=== PATIENT | female | born 1930 | race Caucasian/White ===

== ENCOUNTER 2016-09-01 08:56 | Inpatient (IN) | payer OTHER ==
[~2016-09-01] VITALS: Ht 157.5 cm; Wt 52.2 kg
[2016-09-01 08:56] VITALS: BP_SYST 161
[2016-09-01] MEDS ORDERED: ONDANSETRON HCL 4 MG/2 ML VIAL IVP ONE (09:00)
[2016-09-01] MEDS ORDERED: DEXAMETHASONE SOD PHOSPHATE 10 MG/ML VIAL IVP ONE (09:00)
[2016-09-01] MEDS ORDERED: NS 500 ML IV ONE (09:15)
[2016-09-01 09:25] LABS: BASOPHILS % (AUTO) 0.3 % (0.0-2.0); EOSINOPHILS # (AUTO) 0.1 K/uL (0.0-0.4); EOSINOPHILS % (AUTO) 2.6 % (0.0-4.0); HEMATOCRIT 44.2 % (36-48); HEMOGLOBIN 14.6 g/dL (12.0-16.0); LYMPHOCYTES # (AUTO) 0.9 K/uL (1.0-5.5); LYMPHOCYTES % (AUTO) 16.4 % (20.5-51.5); MEAN CORPUSCULAR HEMOGLOBIN 31 pg (27-31); MEAN CORPUSCULAR HGB CONC 33 % (32-36); MEAN CORPUSCULAR VOLUME 94 fL (79.0-98.0); MONOCYTES # (AUTO) 0.4 K/uL (0.0-1.0); MONOCYTES % (AUTO) 7.8 % (1.7-9.3); NEUTROPHILS # (AUTO) 3.9 K/uL (1.8-7.7); NEUTROPHILS % (AUTO) 72.9 % (40.0-70.0); PLATELET COUNT (AUTO) 164 K/uL (130-430); RED BLOOD CELL COUNT(AUTO) 4.72 MIL/uL (4.2-6.2); RED CELL DISTRIBUTION WIDTH 13.9 % (9.0-15.0); WHITE BLOOD COUNT (AUTO) 5.3 K/uL (4.8-10.8)
[2016-09-01] MEDS ORDERED: ONDANSETRON HCL 4 MG/2 ML VIAL ONE (09:29)
[2016-09-01 09:30] LABS: ANION GAP 4 (5-15); CALCIUM 9.2 mg/dL (8.4-11.0); CHLORIDE 100 mmol/L (98-107); CREATININE 0.74 mg/dL (0.55-1.30); GLUCOSE 122 mg/dL (70-99); POTASSIUM 3.9 mmol/L (3.5-5.1); SODIUM SERUM 135 mmol/L (136-145); UREA NITROGEN, BLOOD 12 mg/dL (8-21)
[2016-09-01 09:35] LABS: ALANINE AMINOTRANSFERASE 49 U/L (12-78); ALBUMIN 3.8 g/dL (3.4-4.8); ASPARTATE AMINOTRANSFERASE 23 U/L (10-37); TOTAL PROTEIN, SERUM 7.5 g/dL (6.4-8.3)
[2016-09-01] MEDS ORDERED: GLUCAGON,HUMAN RECOMBINANT 1 MG VIAL IVP ONE (10:00)
[2016-09-01] MEDS ORDERED: METOCLOPRAMIDE HCL 10 MG/2 ML VIAL IVP ONE (10:00)
[2016-09-01 10:39] VITALS: BP_SYST 142
[2016-09-01] MEDS ORDERED: MORPHINE 2 MG/ML INJ. SYRINGE IVP PRN (11:45)
[2016-09-01] MEDS ORDERED: ACETAMINOPHEN 325 MG TABLET PO PRN (11:45)
[2016-09-01] MEDS ORDERED: ONDANSETRON HCL 4 MG/2 ML VIAL IVP PRN (11:45)
[2016-09-01 13:00] VITALS: BP_SYST 144
[2016-09-01] MEDS: D5NS 1,000 ML IV SCH ×2 (14:03→21:45)
[2016-09-01 17:00] VITALS: BP_SYST 154
[2016-09-01] MEDS ORDERED: MULT-1164 PO (18:18)
[2016-09-01] MEDS ORDERED: ASPI-862 PO (18:18)
[2016-09-01] MEDS ORDERED: FENT1PAT8 TD (18:19)
[2016-09-01] MEDS ORDERED: HYDR-4100 PO (18:20)
[2016-09-01] MEDS ORDERED: LISI10TA5 PO (18:21)
[2016-09-01] MEDS ORDERED: LEVO50TA77 PO (18:21)
[2016-09-01] MEDS ORDERED: NIFE60TA83 PO (18:22)
[2016-09-01] MEDS ORDERED: NORT25CA30 PO (18:23)
[2016-09-01] MEDS ORDERED: PRO40 PO (18:25)
[2016-09-01] MEDS ORDERED: OMEG1CAP55 PO (18:25)
[2016-09-01] MEDS ORDERED: DOCU-144 PO (18:29)
[2016-09-01] MEDS ORDERED: CHOL2000 PO (18:29)
[2016-09-01 19:50] VITALS: BP_SYST 185
[2016-09-01] MEDS: ENALAPRILAT DIHYDRATE 1.25 MG/ML VIAL IVP PRN (22:37)
[2016-09-02] VITALS (7 sets, daily range): BP systolic 136–182
[2016-09-02] MEDS: ENALAPRILAT DIHYDRATE 1.25 MG/ML VIAL IVP PRN ×3 (03:57→17:35)
[2016-09-02] MEDS ORDERED: SIMETHICONE 40 MG/0.6 ML ML ONE (07:51)
[2016-09-02] MEDS: D5NS 1,000 ML IV SCH ×2 (10:03→17:45)
[2016-09-02] MEDS: MEPERIDINE HCL/PF 100 MG/ML AMP ONE ×2 (14:06→14:08)
[2016-09-02] MEDS: MIDAZOLAM HCL 5 MG/5 ML VIAL ONE ×3 (14:06→14:10)
[2016-09-02] MEDS ORDERED: PANTOPRAZOLE SODIUM 40 MG TAB PO ONE (14:45)
[2016-09-02] MEDS ORDERED: fentaNYL 75 MCG/HR PATCH TD SCH (20:15)
[2016-09-02] MEDS ORDERED: HYDROcodone/ACETAMIN 10-325 MG TAB PO PRN (20:15)
[2016-09-02] MEDS ORDERED: LISINOPRIL 10 MG TABLET (PRINIVIL) PO ONE (20:30)
[2016-09-02] MEDS ORDERED: NORTRIPTYLINE HCL 25 MG CAPSULE PO SCH (21:00)
[2016-09-03 01:13] VITALS: BP_SYST 134
[2016-09-03] MEDS: D5NS 1,000 ML IV SCH (01:42)
[2016-09-03] MEDS: ENALAPRILAT DIHYDRATE 1.25 MG/ML VIAL IVP PRN ×2 (04:44→09:47)
[2016-09-03 04:45] VITALS: BP_SYST 187
[2016-09-03] MEDS ORDERED: LEVOTHYROXINE SODIUM 0.05 MG TABLET PO SCH (07:00)
[2016-09-03] MEDS ORDERED: fentaNYL 75 MCG/HR PATCH TD SCH (07:00)
[2016-09-03 07:06] VITALS: BP_SYST 169
[2016-09-03 08:00] VITALS: BP_SYST 172
[2016-09-03] MEDS ORDERED: PANTOPRAZOLE SODIUM 40 MG TAB PO SCH (09:00)
[2016-09-03] MEDS ORDERED: ASPIRIN 325 MG TABLET (ECOTRIN) PO SCH (09:00)
[2016-09-03] MEDS ORDERED: OMEGA-3/DHA/EPA/FISH OIL 1 GM CAPSULE PO SCH (09:00)
[2016-09-03] MEDS ORDERED: DOCUSATE SODIUM 100 MG CAPSULE PO SCH (09:00)
[2016-09-03] MEDS ORDERED: LISINOPRIL 10 MG TABLET (PRINIVIL) PO SCH (09:00)
[2016-09-03] MEDS ORDERED: OMEP10SU PO (11:27)
[2016-09-03 11:28] VITALS: BP_SYST 153
[2016-09-03 12:00] VITALS: BP_SYST 116; BP_SYST 177
[2016-09-03] MEDS ORDERED: NIFEDIPINE 60 MG TABLET.SA (PROCARDIA XL 60 MG) PO ONE (12:45)
[2016-09-04] MEDS ORDERED: NIFEDIPINE 60 MG TABLET.SA (PROCARDIA XL 60 MG) PO SCH (09:00)
== END 2016-09-03 14:20 | disposition home or self-care (01) | DRG 392 ==
LOC: SED 08:56 → SMU 10:18
PROVIDERS: ADMIT Internal Medicine Hospice and Palliative Medicine; ATTEND Internal Medicine Hospice and Palliative Medicine
PROC: 0DB68ZX Excision of Stomach, Via Natural or Artificial Opening Endoscopic, Diagnostic (ICD-10-PCS; principal; 2016-09-02 13:30)
PROC: 0D758ZZ Dilation of Esophagus, Via Natural or Artificial Opening Endoscopic (ICD-10-PCS; 2016-09-02 13:30)
DX: K22.2 Esophageal obstruction (principal); E03.9 Hypothyroidism, unspecified; E04.9 Nontoxic goiter, unspecified; G89.29 Other chronic pain; I10 Essential (primary) hypertension; K29.70 Gastritis, unspecified, without bleeding; K44.9 Diaphragmatic hernia without obstruction or gangrene; J39.8 Other specified diseases of upper respiratory tract; K22.8 Other specified diseases of esophagus
CPT/HCPCS: 36415; 43239; 71250-TC; 80053; 83605; 85025; 87040-TC; 87081; 96374; 96375; 99285; J1100; J1610; J2175; J2250; J2270; J2405; J2765; J7040; J7042

== ENCOUNTER 2016-12-10 08:24 | Emergency (ER) | payer OTHER ==
[~2016-12-10] VITALS: Ht 157.5 cm; Wt 59.9 kg
[~2016-12-10 08:24] MED LIST: ASPI-862 PO; CHOL2000 PO; DOCU-144 PO; FENT1PAT8 TD; HYDR-4100 PO; LEVO50TA77 PO; LISI10TA5 PO; MULT-1164 PO; NIFE60TA83 PO; NORT25CA30 PO; OMEG1CAP55 PO; OMEP10SU PO
[2016-12-10 08:33] VITALS: BP_SYST 193
[2016-12-10 09:31] LABS: BASOPHILS % (AUTO) 0.3 % (0.0-2.0); EOSINOPHILS # (AUTO) 0.2 K/uL (0.0-0.4); EOSINOPHILS % (AUTO) 3.5 % (0.0-4.0); HEMATOCRIT 44.5 % (36-48); HEMOGLOBIN 14.5 g/dL (12.0-16.0); LYMPHOCYTES # (AUTO) 1.3 K/uL (1.0-5.5); LYMPHOCYTES % (AUTO) 23.5 % (20.5-51.5); MEAN CORPUSCULAR HEMOGLOBIN 30 pg (27-31); MEAN CORPUSCULAR HGB CONC 33 % (32-36); MEAN CORPUSCULAR VOLUME 93 fL (79.0-98.0); MONOCYTES # (AUTO) 0.4 K/uL (0.0-1.0); MONOCYTES % (AUTO) 7.9 % (1.7-9.3); NEUTROPHILS # (AUTO) 3.7 K/uL (1.8-7.7); NEUTROPHILS % (AUTO) 64.8 % (40.0-70.0); PLATELET COUNT (AUTO) 169 K/uL (130-430); RED BLOOD CELL COUNT(AUTO) 4.79 MIL/uL (4.2-6.2); WHITE BLOOD COUNT (AUTO) 5.6 K/uL (4.8-10.8)
[2016-12-10 09:38] LABS: INR 0.9 (0.8-1.2)
[2016-12-10 09:47] LABS: ANION GAP 7 (5-15); CALCIUM 9.1 mg/dL (8.4-11.0); CHLORIDE 104 mmol/L (98-107); GLUCOSE 122 mg/dL (70-99); SODIUM SERUM 140 mmol/L (136-145); UREA NITROGEN, BLOOD 13 mg/dL (8-21)
[2016-12-10 09:52] LABS: ALANINE AMINOTRANSFERASE 57 U/L (12-78); ALBUMIN 3.9 g/dL (3.4-4.8); ASPARTATE AMINOTRANSFERASE 27 U/L (10-37); TOTAL BILIRUBIN 1.1 mg/dL (0.0-1.0); TOTAL PROTEIN, SERUM 7.6 g/dL (6.4-8.3)
[2016-12-10] MEDS ORDERED: AZITHROMYCIN 500 MG in NS 250 ML IV ONE (10:30)
[2016-12-10] MEDS ORDERED: cefTRIAXone 1 GM IVPB PREMIX 50 ML IV ONE (10:30)
[2016-12-10 10:52] LABS: BILIRUBIN,URINE NEGATIVE (NEGATIVE); BLOOD, URINE 1+ (NEGATIVE); CLARITY/URINE CLEAR (CLEAR); COLOR,URINE YELLOW (YELLOW); GLUCOSE,URINE NEGATIVE (NEGATIVE); KETONES,URINE NEGATIVE (NEGATIVE); LEUKOCYTE ESTERASE ,URINE NEGATIVE (NEGATIVE); NITRITE, URINE NEGATIVE (NEGATIVE); PROTEIN URINE NEGATIVE (NEGATIVE); UROBILINOGEN,URINE 0.2 (0.2-1.0)
[2016-12-10] MEDS ORDERED: AZITHROMYCIN 500 MG/VIAL (ZITHROMAX) IV ONE (11:04)
[2016-12-10 11:29] LABS: BACTERIA,URINE FEW /HPF (None Seen); MUCUS,URINE None Seen /LPF (None Seen); RBC,URINE 0-3 /HPF (0-3); WBC,URINE 0-3 /HPF (0-3)
[2016-12-10 12:09] LABS: BLOOD GAS PH 7.393 (7.350-7.450)
[2016-12-10 12:10] LABS: ABG TOTAL HEMOGLOBIN 15.1 G/dL (12.0-18.0); BLOOD GAS BASE EXCESS 1.1 mmol/L (-3.0-3.0); BLOOD GAS COHb% 0.8 % (0.5-1.5); BLOOD GAS HHB 8.7 % (0.0-6.0); BLOOD O2Hb% 90.4 % (94.0-97.0)
[2016-12-10 13:13] VITALS: BP_SYST 149
== END 2016-12-10 13:13 | disposition home or self-care (01) ==
LOC: SED 09:17
DX: J40 Bronchitis, not specified as acute or chronic (principal); I10 Essential (primary) hypertension; Z85.3 Personal history of malignant neoplasm of breast; Z90.49 Acquired absence of other specified parts of digestive tract; Z79.899 Other long term (current) drug therapy
CPT/HCPCS: 36415; 36600; 71010; 80053; 81000; 82803; 83605; 83874; 85025; 85610; 85730; 86710; 87040; 87086; 93005; 96365; 96367; 99285; J0456; J0696; J7050

== ENCOUNTER 2017-02-24 09:53 | Outpatient (CLI) | payer OTHER | END 2017-02-24 21:28 | disposition home or self-care (01) | LOC: SRD 09:53 | DX: R13.10 Dysphagia, unspecified (principal) | CPT/HCPCS: 74230; 92611-GN ==

== ENCOUNTER 2019-03-22 00:57 | Emergency (ER) | payer OTHER ==
[~2019-03-22] VITALS: Ht 157.5 cm; Wt 61.2 kg
[2019-03-22 00:57] VITALS: BP_SYST 149
[~2019-03-22 00:57] MED LIST changes: -LEVO50TA77 PO; -NORT25CA30 PO; +NORT25CA5 PO; -OMEP10SU PO; +OMEP10SU2 PO; +SYN50 PO
--- NOTE | 2019-03-22 01:00 | NUR ---
Patient to ER bed 1 to gown for evaluation. Side rails up.
--- NOTE | 2019-03-22 01:10 | NUR ---
Dr. Naidu bedside for Pt eval
--- NOTE | 2019-03-22 01:20 | NUR ---
Pt BIBA to ED C/O status post fall with head injury to the left temporal scalp. Pt states she was walking to get dinner when she noted it was midnight. She returned to her bed with the light off and fell on her way back. She denies loss of consciousness. She endorses a mild headache. Pt reportedly fell on carpet floor. She states she has chronic back pain; however pain is the same in severity as it normally is, she denies exacerbation after fall. No other complaints and or injuries noted VSS no s/s of acute distress. Resting on gur[employer]MyProcess rails up
[2019-03-22] MEDS ORDERED: CHOL100035 PO (01:27)
[2019-03-22] MEDS ORDERED: PRO40 PO (01:27)
[2019-03-22] MEDS ORDERED: HYDR-3925 PO (01:29)
[2019-03-22] MEDS ORDERED: DIPH-TET-PERTUS Vaccine 0.5 ML VIAL (ADACEL) I.M. ONE (01:30)
--- NOTE | 2019-03-22 01:30 | NUR ---
Pt taken to Radiology in stable condition
[2019-03-22 01:57] LABS: ANION GAP 6 (5-15); CALCIUM 9.4 mg/dL (8.4-11.0); CHLORIDE 100 mmol/L (98-107); CREATININE 0.86 mg/dL (0.55-1.30); GLUCOSE 90 mg/dL (70-99); SODIUM SERUM 136 mmol/L (136-145); UREA NITROGEN, BLOOD 23 mg/dL (8-21)
[2019-03-22 01:58] LABS: BASOPHILS % (AUTO) 0.1 % (0.0-2.0); EOSINOPHILS # (AUTO) 0.2 K/uL (0.0-0.4); EOSINOPHILS % (AUTO) 2.3 % (0.0-4.0); HEMATOCRIT 41.9 % (36-48); HEMOGLOBIN 14.3 g/dL (12.0-16.0); LYMPHOCYTES # (AUTO) 1.2 K/uL (1.0-5.5); LYMPHOCYTES % (AUTO) 17.7 % (20.5-51.5); MEAN CORPUSCULAR HEMOGLOBIN 33 pg (27-31); MEAN CORPUSCULAR HGB CONC 34 % (32-36); MEAN CORPUSCULAR VOLUME 98 fL (79.0-98.0); MONOCYTES # (AUTO) 0.6 K/uL (0.0-1.0); MONOCYTES % (AUTO) 8.4 % (1.7-9.3); NEUTROPHILS # (AUTO) 4.9 K/uL (1.8-7.7); NEUTROPHILS % (AUTO) 71.5 % (40.0-70.0); PLATELET COUNT (AUTO) 140 K/uL (130-430); RED CELL DISTRIBUTION WIDTH 13.6 % (9.0-15.0); WHITE BLOOD COUNT (AUTO) 6.9 K/uL (4.8-10.8)
--- NOTE | 2019-03-22 02:00 | NUR ---
Pt back from Radiology, well tolerated
[2019-03-22 02:02] LABS: ALANINE AMINOTRANSFERASE 40 U/L (12-78); ALBUMIN 3.7 g/dL (3.4-4.8); ASPARTATE AMINOTRANSFERASE 24 U/L (10-37); TOTAL BILIRUBIN 1.2 mg/dL (0.0-1.0)
[2019-03-22 02:04] LABS: ALCOHOL, BLOOD < 3 mg/dL (<10)
[2019-03-22 02:05] LABS: INR 0.9 (0.8-1.2); PROTHROMBIN TIME 9.3 SECS (9.5-12.5)
--- NOTE | 2019-03-22 03:00 | NUR ---
VSS no s/s of acute distress. Resting on gurney rails up
--- NOTE | 2019-03-22 04:00 | NUR ---
S/W [facility] facility / Faye, report given. She stated will keep door open to expect incoming Pt transport
[2019-03-22 04:10] VITALS: BP_SYST 128
--- NOTE | 2019-03-22 04:10 | NUR ---
[facility] bedside for Pt transport back to [facility]. Pt in stable condition
--- NOTE | 2019-03-22 04:10 | NUR ---
Patient given written and verbal discharge instructions and verbalizes understanding. ER MD discussed with patient the results and treatment provided. Patient in stable condition. ID arm band removed. IV catheter removed intact and dressing applied, no active bleeding. Patient educated on pain management and to follow up with PMD. Pain Scale 0/10 Opportunity for questions provided and answered.
== END 2019-03-22 04:10 | disposition home or self-care (01) ==
LOC: SED 00:57
DX: S00.03XA Contusion of scalp, initial encounter (principal); M25.572 Pain in left ankle and joints of left foot; M79.672 Pain in left foot; M79.652 Pain in left thigh; I10 Essential (primary) hypertension; E07.9 Disorder of thyroid, unspecified; Z79.899 Other long term (current) drug therapy; Z91.018 Allergy to other foods; Z88.8 Allergy status to other drugs, medicaments and biological substances; W19.XXXA Unspecified fall, initial encounter; Y93.89 Activity, other specified; Y92.092 Bedroom in other non-institutional residence as the place of occurrence of the external cause; Y99.8 Other external cause status
CPT/HCPCS: 36415; 70450; 73590; 73610; 73630; 80053; 82550; 84484; 85025; 85610; 85730; 90471; 90715; 93005; 99284; G0482